=== PATIENT | female | born 1955 | race Caucasian/White ===

== ENCOUNTER 2022-05-15 16:34 | Inpatient (IN) ==
[2022-05-15] MEDS ORDERED: Midazolam 2 mg/2 ml VIAL 1 mg/ml 2 ml VIAL (2 mg) IM ONE (17:04)
[2022-05-15] MEDS ORDERED: Lactated Ringers 1000 ml BAG 1,000 ML IV ONE ×2 (17:04→18:20)
[2022-05-15 17:49] LABS: Urine Appearance Cloudy; Urine Bilirubin Negative (Negative); Urine Blood Negative (Negative); Urine Color Yellow; Urine Glucose Negative (Negative); Urine Ketones Trace (Negative); Urine Nitrite Negative (Negative); Urine Protein 1+(30 mg/dL) (Negative); Urine Specific Gravity 1.012 (1.002-1.030); Urine Urobilinogen Negative (Negative)
[2022-05-15 17:49] LABS: Hematocrit 51 % (35-47); Hemoglobin 16.9 g/dL (12.0-16.0); Mean Corpuscular HGB Conc 33 g/dL (31-36); Mean Corpuscular Hemoglobin 29 pg (27-31); Mean Corpuscular Volume 88 fL (80-97); Red Blood Count 5.76 10^6 /uL (3.70-4.87); Red Cell Distribution Width 15 % (10-15); White Blood Count 20.2 10^3/uL (3.5-10.8)
[2022-05-15 17:55] LABS: INR 0.97 (0.86-1.15)
[2022-05-15 18:00] LABS: Urine Bacteria Absent (Absent); Urine Red Blood Cell Trace(0-2/hpf) (Absent); Urine Squamous Epithelial Cell Present (Absent); Urine White Blood Cell Trace(0-5/hpf) (Absent)
[2022-05-15 18:06] LABS: Urine Benzodiazepine Screen None Detected (None Detect); Urine Cannabinoids Screen Presumptive Positive (None Detect); Urine Opiates Screen None Detected (None Detect)
[2022-05-15 18:33] LABS: Albumin 4.2 g/dL (3.2-5.2); Albumin/Globulin Ratio 1.4 (1-3); Calcium 10.2 mg/dL (8.6-10.3); Globulin 3.1 g/dL (2-4); Total Bilirubin 0.5 mg/dL (0.2-1.0); Total Protein 7.3 g/dL (6.4-8.9); eGFR CKD-EPI 84.5 (>60)
[2022-05-15 18:37] LABS: ABS Basophils 0.3 10^3/ul (0-0.2); ABS Eosinophils 0.3 10^3/ul (0-0.6); ABS Lymphocytes 5.2 10^3/ul (1.0-4.8); ABS Monocytes 1.4 10^3/ul (0-0.8); Eosinophil % 1.5 %; Lymphocyte % 25.9 %
[2022-05-15 18:39] LABS: Platelet Count Platelets clumped. 10^3/uL (150-450)
[2022-05-15 18:45] LABS: Potassium 4.6 mmol/L (3.5-5.0)
[2022-05-15 19:01] LABS: Acetaminophen < 15 mcg/mL; Alcohol, S < 13 mg/dL (<13); Salicylate < 2.50 mg/dL (<30)
[2022-05-15 19:20] LABS: C Reactive Protein 1.49 mg/L (<8.01)
[2022-05-15 19:28] LABS: T4, Total 11.44 mcg/dL (6.09-12.23)
[2022-05-15 20:01] LABS: Mean Platelet Volume 8.4 fL (7.4-10.4); Platelet Count 308 10^3/uL (150-450)
[2022-05-15 20:40] LABS: High Sensitivity Troponin 1 Hr 7 pg/mL (<15)
[2022-05-15] MEDS ORDERED: Enoxaparin 40 MG/0.4 ML SYR SUBCUT SCH (23:00)
[2022-05-16 06:14] LABS: ABS Basophils 0.1 10^3/ul (0-0.2); ABS Eosinophils 0.2 10^3/ul (0-0.6); ABS Lymphocytes 4.3 10^3/ul (1.0-4.8); ABS Monocytes 1.3 10^3/ul (0-0.8); ABS Neutrophils 5.3 10^3/ul (1.5-7.7); Hematocrit 44 % (35-47); Hemoglobin 14.5 g/dL (12.0-16.0); Lymphocyte % 38.7 %; Mean Corpuscular HGB Conc 33 g/dL (31-36); Mean Corpuscular Hemoglobin 29 pg (27-31); Mean Corpuscular Volume 88 fL (80-97); Mean Platelet Volume 8.2 fL (7.4-10.4); Nucleated Red Blood Cells % 0.1; Platelet Count 263 10^3/uL (150-450); Red Blood Count 4.97 10^6 /uL (3.70-4.87); Red Cell Distribution Width 14 % (10-15); White Blood Count 11.2 10^3/uL (3.5-10.8)
[2022-05-16 06:39] LABS: Calcium 9.1 mg/dL (8.6-10.3); Potassium 4.2 mmol/L (3.5-5.0); eGFR CKD-EPI 99.1 (>60)
[2022-05-16 11:03] LABS: Free T4 1.55 ng/dL (0.61-1.12)
[2022-05-16] MEDS ORDERED: Al Hydrox/Mg Hydrox/Simet LIQ 30 ML UDC PO PRN (11:24)
[2022-05-16] MEDS: risperiDONE-M 1 mg Oradis TAB PO SCH (21:55)
[2022-05-17] MEDS: risperiDONE-M 1 mg Oradis TAB PO SCH ×2 (10:04→21:32)
[2022-05-18] MEDS: risperiDONE-M 1 mg Oradis TAB PO SCH ×2 (08:49→20:26)
[2022-05-19] MEDS: risperiDONE-M 1 mg Oradis TAB PO SCH ×2 (09:46→21:35)
[2022-05-20] MEDS: risperiDONE-M 1 mg Oradis TAB PO SCH ×2 (09:08→20:52)
[2022-05-21] MEDS: risperiDONE-M 1 mg Oradis TAB PO SCH ×2 (09:24→20:54)
[2022-05-22] MEDS: risperiDONE-M 1 mg Oradis TAB PO SCH ×2 (09:21→20:09)
[2022-05-23] MEDS: risperiDONE-M 1 mg Oradis TAB PO SCH ×2 (09:09→20:05)
[2022-05-24] MEDS: risperiDONE-M 1 mg Oradis TAB PO SCH (09:31)
[2022-05-24] MEDS ORDERED: OLANZapine IM (NF) 10 MG VIAL IM ONE (15:01)
[2022-06-06] MEDS ORDERED: Paliperidone SUSTENNA 234 MG/1.5 ML IM ONE (09:38)
[2022-06-10] MEDS ORDERED: Paliperidone SUSTENNA 156 MG/1 ML IM ONE (07:13)
[2022-06-14] MEDS: Nicotine GUM 2MG FRUIT FLAVOR PO PRN ×3 (15:04→20:15)
[2022-06-15] MEDS: Nicotine Lozenge mini 4 MG LOZNG.MINI MT PRN ×3 (15:23→19:49)
[2022-06-15] MEDS: Nicotine GUM 2MG FRUIT FLAVOR PO PRN (19:47)
[2022-06-16] MEDS: Nicotine Lozenge mini 4 MG LOZNG.MINI MT PRN ×6 (07:26→20:31)
[2022-06-16 08:05] LABS: ABS Eosinophils 0.9 10^3/ul (0-0.6); ABS Lymphocytes 3.8 10^3/ul (1.0-4.8); ABS Monocytes 1.4 10^3/ul (0-0.8); ABS Neutrophils 6.2 10^3/ul (1.5-7.7); Eosinophil % 7.2 %; Hematocrit 40 % (35-47); Hemoglobin 13.4 g/dL (12.0-16.0); Lymphocyte % 30.8 %; Mean Corpuscular HGB Conc 33 g/dL (31-36); Mean Corpuscular Hemoglobin 30 pg (27-31); Mean Corpuscular Volume 89 fL (80-97); Mean Platelet Volume 7.7 fL (7.4-10.4); Nucleated Red Blood Cells % 0.1; Platelet Count 294 10^3/uL (150-450); Red Blood Count 4.55 10^6 /uL (3.70-4.87); Red Cell Distribution Width 15 % (10-15); White Blood Count 12.2 10^3/uL (3.5-10.8)
[2022-06-16 08:29] LABS: Albumin 3.8 g/dL (3.2-5.2); Albumin/Globulin Ratio 1.4 (1-3); Calcium 9.2 mg/dL (8.6-10.3); Globulin 2.7 g/dL (2-4); HDL Cholesterol 75.1 mg/dL; Magnesium 2.2 mg/dL (1.9-2.7); Potassium 4.7 mmol/L (3.5-5.0); Total Bilirubin 0.4 mg/dL (0.2-1.0); Total Protein 6.5 g/dL (6.4-8.9); eGFR CKD-EPI 101.3 (>60)
[2022-06-16 08:46] LABS: Free T4 0.73 ng/dL (0.61-1.12)
[2022-06-16] MEDS: Nicotine GUM 2MG FRUIT FLAVOR PO PRN (12:14)
[2022-06-17] MEDS: Nicotine Lozenge mini 4 MG LOZNG.MINI MT PRN ×6 (05:35→18:48)
[2022-06-18] MEDS: Nicotine Lozenge mini 4 MG LOZNG.MINI MT PRN ×6 (04:39→19:35)
[2022-06-19] MEDS: Nicotine Lozenge mini 4 MG LOZNG.MINI MT PRN ×6 (06:38→20:02)
[2022-06-20] MEDS: Nicotine Lozenge mini 4 MG LOZNG.MINI MT PRN ×6 (06:11→20:20)
[2022-06-21] MEDS: Nicotine Lozenge mini 4 MG LOZNG.MINI MT PRN ×3 (03:32→08:15)
[2022-06-21 09:28] VITALS: BP 135/87
== END 2022-06-21 09:00 | DRG 885 ==
LOC: ED 16:34 → EDHOLD 16:34 → MED 05-16 00:05 → BSU 05-16 00:23 → SUATTDRO 05-16 11:24 → BSU 05-16 15:15
PROVIDERS: ADMIT Internal Medicine; ATTEND Psychiatry & Neurology Psychiatry